=== PATIENT | male | born 1995 | race Caucasian/White ===

== ENCOUNTER 2022-02-06 18:40 | Emergency (ER) | payer SELFPAY ==
[~2022-02-06] VITALS: Ht 167.6 cm; Wt 113.4 kg
[2022-02-06 18:53] VITALS: BP 154/97
[2022-02-06] MEDS ORDERED: CEPH-588 PO (19:05)
[2022-02-06] MEDS ORDERED: SULF-58 PO (19:05)
--- NOTE | 2022-02-06 19:05 | NUR ---
SEEN AND EXAMINED BY PA
[2022-02-06 19:20] VITALS: BP 154/97
--- NOTE | 2022-02-06 19:20 | NUR ---
Patient discharged with v/s stable. Written and verbal after care instructions given and explained. Patient alert, oriented and verbalized understanding of instructions. Ambulatory with steady gait. All questions addressed prior to discharge. ID band removed. Patient advised to follow up with PMD. Rx of BACTRIM 400-80MG, KEFLEX given. Patient educated on indication of medication including possible reaction and side effects. Opportunity to ask questions provided and answered.
== END 2022-02-06 19:20 | disposition home or self-care (01) ==
LOC: MED 18:40
DX: L02.11 Cutaneous abscess of neck (principal); Z79.899 Other long term (current) drug therapy; Z88.8 Allergy status to other drugs, medicaments and biological substances
CPT/HCPCS: 99283